=== PATIENT | male | born 1955 | race Caucasian/White ===

== ENCOUNTER 2017-04-24 15:01 | Emergency (ER) | payer OTHER ==
[~2017-04-24] VITALS: Ht 167.6 cm; Wt 73.2 kg
[2017-04-24 17:30] LABS: HEMATOCRIT 41.1 % (38.0-50.0); MCH 31.5 PG (29.0-34.0); MCHC 34.8 G/DL (30.0-36.0); MCV 90.5 FL (86-99); MEAN PLAT.VOLUME 8.8 uM^3 (9.0-12.4); PLATELET COUNT 326 K/uL (156-360); RBC DIS.WIDTH-CV 12.7 % (11.8-14.6); RBC DIS.WIDTH-SD 42.2 % (39-53); RED BLOOD COUNT 4.54 M/uL (4.00-5.50); WHITE BLOOD COUNT 20.3 K/uL (4.1-10.2)
[2017-04-24 17:36] LABS: CHLORIDE 100 mEq/L (99-109); POTASSIUM 3.6 mEq/L (3.7-5.4); SODIUM 135 mEq/L (136-147)
[2017-04-24 17:38] LABS: GLUCOSE 100 mg/dL (70-99)
[2017-04-24 17:39] LABS: ANION GAP 14 MEQ/L (2-14)
[2017-04-24 17:41] LABS: GFR ESTIMATE (CALCULATED) > 59 mL/min/
[2017-04-24 17:42] LABS: UREA NITROGEN (BUN) 10 mg/dL (9-23)
[2017-04-24 21:21] VITALS: BP 165/87
== END 2017-04-24 21:22 | disposition home or self-care (01) ==
LOC: EME 15:01
PROVIDERS: Emergency Medicine
PROC: 0C9PXZZ Drainage of Tonsils, External Approach (ICD-10-PCS; principal; 2017-04-24)
DX: J36 Peritonsillar abscess (principal); I10 Essential (primary) hypertension; Z87.891 Personal history of nicotine dependence
CPT/HCPCS: 70491; 80048; 85027; 99281; 99283; J2270; J2405; J7030